=== PATIENT | male | born 1960 | race African-American/Black ===

== ENCOUNTER 2021-05-03 14:17 | Emergency (ER) | payer OTHER, SELFPAY | END 2021-05-03 15:45 | disposition home or self-care (01) | LOC: MADERS 14:17 | DX: K04.7 Periapical abscess without sinus (principal); K03.81 Cracked tooth; R51.9 Headache, unspecified; R68.84 Jaw pain; I10 Essential (primary) hypertension; M19.90 Unspecified osteoarthritis, unspecified site; Z86.73 Personal history of transient ischemic attack (TIA), and cerebral infarction without residual deficits; Z87.442 Personal history of urinary calculi | CPT/HCPCS: 99282 ==

== ENCOUNTER 2022-05-21 12:28 | Emergency (ER) | payer OTHER, SELFPAY ==
[2022-05-21] MEDS ORDERED: Aspirin Chewable 81 MG TAB ONE (12:37)
[2022-05-21 13:16] LABS: #Basophils 0.1 thou/uL (0.0-0.2); #Eosinphils 0.2 thou/uL (0.0-0.7); #Lymphocytes 1.7 thou/uL (1.20-3.40); #Monocytes 0.6 thou/uL (0.11-0.59); #Neutrophils 3.9 thou/uL (1.40-6.50); %Basophils 1.5 % (0.0-1.0); %Eosinophils 3.4 % (0.0-10.0); %Lymphocytes 26.7 % (21.0-51.0); %Monocytes 9.3 % (0.0-10.0); %Neutrophils 59.2 % (42.0-75.0); Hemoglobin 13.7 g/dL (14.0-18.0); Mean Corpuscular HGB CONC 32.8 g/dL (32.0-36.0); Mean Corpuscular Hemoglobin 29.5 pg (27.0-31.0); Mean Corpuscular Volume 90.1 fL (78.0-98.0); Mean Platelet Volume 11.1 fL (7.4-10.4); Platelet Count 254 thou/uL (130-400); RBC Distribution Width 12.6 % (11.5-14.5); Red Blood Cell (RBC) Count 4.62 mill/uL (4.70-6.10); White Blood Cell (WBC) Count 6.5 thou/uL (4.8-10.8)
[2022-05-21 13:32] LABS: ALT (SGPT) 21 U/L (8-55); AST (SGOT) 17 U/L (5-34); Albumin 3.8 g/dL (3.4-4.8); Alkaline Phosphatase 54 U/L (40-110); Anion Gap 10 mmol/L (10-20); BUN (Urea Nitrogen) 14 mg/dL (8.4-25.7); Bilirubin, Total 0.5 mg/dL (0.2-1.2); Calc. Creatinine Clearance 0 mL/min (70-130); Calcium 8.7 mg/dL (7.8-10.44); Carbon Dioxide 28 mmol/L (23-31); Chloride 105 mmol/L (98-107); Estimated GFR 93; Globulin 2.8 g/dL (2.4-3.5); Glucose 134 mg/dL (80-115); Potassium 3.4 mmol/L (3.5-5.1); Protein, Total 6.6 g/dL (5.8-8.1); Sodium 140 mmol/L (136-145)
[2022-05-21] MEDS ORDERED: Enoxaparin Sodium 100 MG/ML SYRINGE ONE (13:52)
[2022-05-21 13:55] LABS: CKMB 1.5 ng/mL (0-6.6)
[2022-05-21 16:11] LABS: Troponin I 0.108 ng/mL (< 0.028)
== END 2022-05-21 19:55 | disposition short-term general hospital (02) ==
LOC: MADERS 12:28
DX: I21.4 Non-ST elevation (NSTEMI) myocardial infarction (principal); I10 Essential (primary) hypertension; Z79.899 Other long term (current) drug therapy
CPT/HCPCS: 36415; 71046; 80053; 82553; 84484; 85025; 93005; 94760; 96372; J1650

== ENCOUNTER 2022-07-22 10:41 | Emergency (ER) | payer OTHER ==
[2022-07-22] MEDS ORDERED: Ondansetron PF 4 MG/2 ML Vial ONE (11:24)
[2022-07-22] MEDS ORDERED: Meclizine HCl 25 MG TAB ONE (11:24)
[2022-07-22 11:26] LABS: #Basophils 0.1 thou/uL (0.0-0.2); #Eosinphils 0.3 thou/uL (0.0-0.7); #Monocytes 0.7 thou/uL (0.11-0.59); #Neutrophils 4.5 thou/uL (1.40-6.50); %Basophils 1.9 % (0.0-1.0); %Eosinophils 3.3 % (0.0-10.0); %Lymphocytes 26.1 % (21.0-51.0); %Monocytes 9.2 % (0.0-10.0); %Neutrophils 59.5 % (42.0-75.0); Hemoglobin 13.8 g/dL (14.0-18.0); Mean Corpuscular HGB CONC 33.3 g/dL (32.0-36.0); Mean Corpuscular Hemoglobin 29.3 pg (27.0-31.0); Mean Corpuscular Volume 88.1 fl (78.0-98.0); Mean Platelet Volume 9.4 fL (7.4-10.4); Platelet Count 252 10x3/uL (130-400); RBC Distribution Width 12.2 % (11.5-14.5); Red Blood Cell (RBC) Count 4.71 mill/uL (4.70-6.10); White Blood Cell (WBC) Count 7.6 10x3/uL (4.8-10.8)
[2022-07-22 11:42] LABS: ALT (SGPT) 23 U/L (8-55); AST (SGOT) 19 U/L (5-34); Alkaline Phosphatase 59 U/L (40-110); Anion Gap 12 mmol/L (10-20); BUN (Urea Nitrogen) 16 mg/dL (8.4-25.7); Bilirubin, Total 0.4 mg/dL (0.2-1.2); Calc. Creatinine Clearance 0 mL/min (70-130); Calcium 8.7 mg/dL (7.8-10.44); Carbon Dioxide 25 mmol/L (23-31); Chloride 106 mmol/L (98-107); Estimated GFR 98; Globulin 2.8 g/dL (2.4-3.5); Glucose 96 mg/dL (80-115); Magnesium 2.2 mg/dL (1.6-2.6); Potassium 3.8 mmol/L (3.5-5.1); Protein, Total 6.8 g/dL (5.8-8.1); Sodium 139 mmol/L (136-145)
[2022-07-22 12:00] LABS: CKMB 1.7 ng/mL (0-6.6)
[2022-07-22 12:23] LABS: Bilirubin Negative (Negative); Blood, Urine Negative (Negative); Clarity Clear (Clear); Glucose, Urine (Dipstick) Negative (Negative); Ketone, Urine Negative (Negative); Leukocyte Small (Negative); Nitrite Negative (Negative); Protein, Urine (Dipstick) Negative (Neg-Trace); Urobilinogen 0.2 mg/dL (Less than 2); pH, Urine 6.5 (5.0-9.0)
[2022-07-22 12:24] LABS: Bacteria/HPF Rare-Few HPF (None Seen); Squamous Epithelial 0-3 HPF (0-3)
[2022-07-22] MEDS ORDERED: cefTRIAXone\\ROCEPHIN 1 GM VIAL ONE (12:45)
[2022-07-22] MEDS ORDERED: Sodium Chloride 0.9% 100 ML ONE (12:45)
[2022-07-22 14:15] LABS: Troponin I 0.059 ng/mL (< 0.028)
[2022-07-22 17:20] LABS: CKMB 1.7 ng/mL (0-6.6)
== END 2022-07-22 17:59 | disposition home or self-care (01) ==
LOC: MADERS 10:41
DX: R42 Dizziness and giddiness (principal); R77.8 Other specified abnormalities of plasma proteins; N39.0 Urinary tract infection, site not specified; I10 Essential (primary) hypertension; Z79.82 Long term (current) use of aspirin; Z79.899 Other long term (current) drug therapy; Z86.73 Personal history of transient ischemic attack (TIA), and cerebral infarction without residual deficits
CPT/HCPCS: 36415; 70450; 71045; 80053; 81003; 81015; 82553; 83735; 83880; 84484; 85025; 87086; 93005; 96374; 96375; J0696; J2405; J3490

== ENCOUNTER 2023-08-22 09:06 | Emergency (ER) | payer MEDICARE ==
[2023-08-22] MEDS ORDERED: Orphenadrine Citrate 60 MG/2 ML VIAL ONE (09:47)
== END 2023-08-22 10:00 | disposition home or self-care (01) ==
LOC: MADERS 09:06
DX: M43.6 Torticollis (principal); I10 Essential (primary) hypertension; Z86.73 Personal history of transient ischemic attack (TIA), and cerebral infarction without residual deficits
CPT/HCPCS: 96372; 99283; J2360

== ENCOUNTER 2024-07-13 07:40 | Emergency (ER) | payer OTHER | END 2024-07-13 09:09 | disposition home or self-care (01) | LOC: MADERS 07:40 | DX: J20.9 Acute bronchitis, unspecified (principal) | CPT/HCPCS: 87428; 99283 ==

== ENCOUNTER 2024-08-29 14:34 | Emergency (ER) | payer OTHER ==
[2024-08-29] MEDS ORDERED: predniSONE 20 MG TAB ONE (15:53)
[2024-08-29] MEDS ORDERED: Doxycycline 100 MG CAP ONE (15:53)
== END 2024-08-29 16:01 | disposition home or self-care (01) ==
LOC: MADERS 14:34
DX: J22 Unspecified acute lower respiratory infection (principal); I10 Essential (primary) hypertension
CPT/HCPCS: 71045; J7512